=== PATIENT | male | born 1955 | race Caucasian/White ===

== ENCOUNTER 2019-03-20 10:12 | Emergency (ER) | payer OTHER ==
[2019-03-20 10:51] VITALS: BP 126/79
--- NOTE | 2019-03-20 11:34 | UC ---
Elbow Pain - HPI Summary HPI Summary: 63-year-old male presents with complaints of 3 day history of left medial elbow pain. No known injury. States pain as a constant ache that worsens with movement especially flexion of the elbow. Patient states that he has been carrying water buckets recently to water his garden. States has been taking naproxen without relief in his symptoms. Denies fever, chills, erythema, ecchymosis, edema, numbness, or tingling. - History of Current Complaint Chief Complaint: UCUpperExtremity Stated Complaint: LEFT ELBOW CONCERN Time Seen by Provider: 03/20/19 11:20 Hx Obtained From: Patient Pain Intensity: 4 - Allergies/Home Medications Allergies/Adverse Reactions: Allergies Allergy/AdvReac Type Severity Reaction Status Date / Time Penicillins Allergy Rash Verified 03/20/19 10:36 Sulfa (Sulfonamide Allergy Unknown Verified 03/20/19 10:36 Antibiotics) Reaction Details erythromycin base AdvReac GI Upset Verified 03/20/19 10:36 Home Medications: Home Medications Albuterol 2.5MG/3ML (0.083%)* [Ventolin 2.5 MG/3 ML NEB.LATA*] 2.5 mg INH BID 02/01 [History Confirmed 03/20/19] Benazepril/Hydrochlorothiazide [Benazepril HCl/Hydrochlor 20-12.5 mg-] 1 tab PO DAILY 03/20/19 [History Confirmed 03/20/19] Diazepam TAB(*) [Valium TAB(*)] 5 mg PO TID PRN 03/20/19 [History Confirmed 02/01] Finasteride TAB* [Proscar TAB*] 5 mg PO DAILY 03/20/19 [History Confirmed ] Furosemide TAB* [Lasix TAB*] 40 mg PO DAILY 03/20/19 [History Confirmed 03/20/19 ] L.acidoph,Paracasei, B.lactis [Probiotic] 1 each PO DAILY 03/20/19 [History Confirmed 03/20/19] Montelukast Sodium TAB* [Singulair TAB*] 10 mg PO DAILY 03/20/19 [History Confirmed 03/20/19] Naproxen Sodium [Aleve] 440 mg PO DAILY 03/20/19 [History Confirmed 03/20/19] PMH/Surg Hx/FS Hx/Imm Hx Cardiovascular History: Hypertension Respiratory History: COPD GI/ History: Gastroesophageal Reflux, Other - BPH - Surgical History Surgical History: None - Family History Known Family History: Positive: Hypertension - Social History Occupation: Employed Full-time, Retired Lives: Alone Alcohol Use: Rare Substance Use Type: None Smoking Status (MU): Former Smoker When Did the Patient Quit Smoking/Using Tobacco: 2003 Review of Systems All Other Systems Reviewed And Are Negative: Yes Constitutional: Negative: Fever, Chills Skin: Negative: Rash, Bruising Respiratory: Positive: Negative Cardiovascular: Positive: Negative Gastrointestinal: Positive: Negative Genitourinary: Positive: Negative Motor: Negative: Weakness Neurovascular: Negative: Decreased Sensation Musculoskeletal: Positive: Other: - See HPI Neurological: Positive: Negative Is Patient Immunocompromised?: No Physical Exam - Summary Physical Exam Summary: GENERAL APPEARANCE: Alert and cooperative, obese, older adult male who appears to be in no acute distress. CARDIAC: Normal S1 and S2. No S3, S4 or murmurs. Rhythm is regular. There is no peripheral edema, cyanosis or pallor. Extremities are warm and well perfused. Capillary refill is less than 2 seconds. Peripheral pulses intact. LUNGS: Clear to auscultation without rales, rhonchi, wheezing or diminished breath sounds. ABDOMEN: Positive bowel sounds. Soft, nondistended, nontender. No guarding or rebound. No masses or hepatosplenomegally. MUSKULOSKELETAL: Normal muscular development. Normal gait. EXTREMITIES: Tenderness over the medial epicondyle without gross deformity, erythema, or ecchymosis. Full ROM of the left elbow although with pain with flexion. Pain with resisted pronation, resisted wrist flexion, and terminal passive wrist extension. SKIN: Skin normal color, texture and turgor with no lesions or eruptions. Triage Information Reviewed: Yes Vital Signs: Initial Vital Signs Temp 98.1 F 03/20/19 10:42 Pulse 73 03/20/19 10:42 Resp 16 03/20/19 10:42 BP 126/79 03/20/19 10:42 Pulse Ox 96 03/20/19 10:42 Vital Signs Reviewed: Yes Elbow Pain Course/Dx - Course Course Of Treatment: 63-year-old male presents with complaints of 3 day history of left medial elbow pain. No known injury. States pain as a constant ache that worsens with movement especially flexion of the elbow. Patient states that he has been carrying water buckets recently to water his garden. States has been taking naproxen without relief in his symptoms. Denies fever, chills, erythema, ecchymosis, edema, numbness, or tingling. Afebrile. Vital signs stable. Patient had tenderness over the medial epicondyle without gross deformity, erythema, or ecchymosis. Full ROM of the left elbow although with pain with flexion. Pain with resisted pronation, resisted wrist flexion, and terminal passive wrist extension. Discussed with patient that without a history of traumatic injury to the elbow that x-rays would likely yield very little information therefore was deferred at this time. Recommending conservative treatment for a medial epicondylitis. Since patient reports no improvement with [id number] NSAIDs we will put him on a short course of prednisone 50 mg daily 3 days, use acetaminophen according to directions as needed for additional pain relief, as well as RICE. He is to follow-up with his primary care provider in 5-7 days if symptoms are not improving. Anticipatory guidance and warning symptoms are reviewed with the patient. Verbalizes understanding and agrees with plan of care. - Differential Dx/Diagnosis Differential Diagnosis/HQI/PQRI: Contusion, Dislocation, Fracture (Closed), Sprain, Tendonitis Provider Diagnosis: Medial epicondylitis of left elbow Discharge - Sign-Out/Discharge Documenting (check all that apply): Patient Departure All imaging exams completed and their final reports reviewed: No Studies - Discharge Plan Condition: Stable Disposition: HOME Prescriptions: predniSONE TAB* [Deltasone TAB*] 50 mg PO DAILY #3 tab Patient Education Materials: Tennis Elbow (ED) Referrals: Kristy Bhatti PA [Primary Care Provider] - Additional Instructions: With no history of trauma and based on your exam I suspect that you have some inflammation of the tendon called medial epicondylitis (golfer's elbow). Take prednisone 50 mg daily x 3 days to help with the inflammation. Do not take any ibuprofen or naproxen while taking this medication. Rest the arm as much as possible. Avoid heavy lifting, strenuous activity, or activities that cause pain. Apply ice to the affected area for 15-20 minutes at least 4 times a day to help with the pain and swelling. Take acetaminophen (Tylenol) according to directions if you need additional pain relief. Follow up with your primary care provider in 5-7 days if symptoms do not improve. Seek immediate medical attention if you have severe pain not managed with pain medication, you lose function of the arm, develop numbness or tingling in the hand or fingers, or any worsening of symptoms. - Billing Disposition and Condition Condition: STABLE Disposition: Home
== END 2019-03-20 11:58 | disposition home or self-care (01) ==
LOC: UCCORT 10:12
DX: M77.02 Medial epicondylitis, left elbow (principal); X50.0XXA Overexertion from strenuous movement or load, initial encounter; Y93.89 Activity, other specified; Y92.007 Garden or yard of unspecified non-institutional (private) residence as the place of occurrence of the external cause; I10 Essential (primary) hypertension; J44.9 Chronic obstructive pulmonary disease, unspecified; Z87.891 Personal history of nicotine dependence
CPT/HCPCS: 99212; G0463